=== PATIENT | male | born 1955 | race Caucasian/White ===

== ENCOUNTER 2022-12-24 21:32 | Emergency (ER) | payer MEDICARE, BC ==
[~2022-12-24] VITALS: Ht 177.8 cm; Wt 77.1 kg
--- NOTE | 2022-12-24 22:40 | NUR ---
Pt is noted alert, responsive as he came in C/O Moody Cath Malfunction and he is S/P Back Surgery a month ago. Pt care continue as awaits MD orders.
[2022-12-24] MEDS ORDERED: LIDOCAINE 2% (GLYDO= UROJET) 10 ML JELLY MM ONE (23:00)
[2022-12-25 00:18] LABS: *BILIRUBIN,URIN NEGATIVE (NEGATIVE); *BLOOD, URINE 3+ (NEGATIVE); *CLARITY,URINE SLIGHTLY CLOUDY (CLEAR); *COLOR,URINE YELLOW (YELLOW); *KETONES,URINE NEGATIVE (NEGATIVE); *UROBILINOGEN,URINE 0.2 E.U./dl (NORMAL); LEUKOCYTE ESTERASE ,URINE 1+ (NEGATIVE); NITRITE, URINE NEGATIVE (NEGATIVE); PH,URINE 7.5 (5.0-8.0); UGLUCOSE 3+ (NEGATIVE)
[2022-12-25] MEDS ORDERED: SULFAMETH/TRIMETH 800/160 MG TABLET ONE (00:29)
[2022-12-25] MEDS ORDERED: SULFAMETH/TRIMETH 800/160 MG TABLET PO ONE (00:30)
[2022-12-25] MEDS ORDERED: CEPH500C2 PO (00:34)
[2022-12-25] MEDS ORDERED: CEphaleXIN 500 MG CAPSULE ONE (00:36)
[2022-12-25] MEDS ORDERED: CEphaleXIN 500 MG CAPSULE PO ONE (00:45)
--- NOTE | 2022-12-25 00:48 | NUR ---
Patient discharged to home in stable condition. Written and verbal after care instructions given. Patient verbalizes understanding of instructions. Stressed follow up or return to ER for worsening s/s. Patient out of ER with steady gait, no acute signs of distress, VSS, all belongings taken, provided with copies of lab results.
[2022-12-25 00:50] VITALS: BP 148/76
[2022-12-25 07:57] LABS: RBC,URINE 50-80 /HPF (0-3)
[2022-12-25 07:58] LABS: BACTERIA,URINE MANY /HPF (NONE SEEN); SQUAMOUS EPITHELIAL CELL,UR MODERATE /HPF (NONE SEEN)
== END 2022-12-25 00:50 | disposition home or self-care (01) ==
LOC: ER 21:32
DX: T83.091A Other mechanical complication of indwelling urethral catheter, initial encounter (principal); N39.0 Urinary tract infection, site not specified; E78.00 Pure hypercholesterolemia, unspecified; Z79.899 Other long term (current) drug therapy
CPT/HCPCS: 51702; A4663